=== PATIENT | female | born 1945 | race Caucasian/White ===

== ENCOUNTER → 2022-12-22 | Day surgery (SDC) | payer MEDICARE, OTHER ==
[~2022-12-22] MED LIST: ANASTROZOLE1 MG PO; Aspirin PO; FLUOXETINE HCL20 M1 PO; FLUOXETINE HCL20 MG PO; GLUCAGON FOR INJ 1 MG VIAL ONE; LACTATED RINGER'S 1,000 ML ONE; LEVOTHYROXINE50 MCG PO; LIDOCAINE HCL 2% LOCAL INJ 5 ML SDV VIAL INJ ONE; LISINOPRIL-HCT1 EACH PO; MELOXICAM7.5 MG PO; METFORMIN HCL500 MG PO; NEURONTIN300 MG PO; ONDANSETRON HCL INJ 2MG/ML 2ML 2 MG/ML VIAL ONE; POVIDONE IODINE 0.05% 0.05 % ML PO ONE; PROPOFOL IV EMULSION 10 MG/ML 20 ML VIAL ONE; PROTONIX20 MG PO; SUCRALFATE1 GM PO; VERAPAMIL ER240 M1; VERAPAMIL ER240 MG PO
[2022-12-22 13:14] VITALS: BP 178/80
== END | disposition home or self-care (01) ==
LOC: OR 06:52
PROVIDERS: ATTEND Internal Medicine Gastroenterology
DX: R63.4 Abnormal weight loss (principal); K29.50 Unspecified chronic gastritis without bleeding; K57.30 Diverticulosis of large intestine without perforation or abscess without bleeding; K63.89 Other specified diseases of intestine; K44.9 Diaphragmatic hernia without obstruction or gangrene; K64.8 Other hemorrhoids; E11.9 Type 2 diabetes mellitus without complications; R03.0 Elevated blood-pressure reading, without diagnosis of hypertension; Z79.84 Long term (current) use of oral hypoglycemic drugs; Z79.899 Other long term (current) drug therapy; Z68.33 Body mass index [BMI] 33.0-33.9, adult; Z85.3 Personal history of malignant neoplasm of breast
CPT/HCPCS: 36415; 43239; 45378; 74280; 82948; 88305; 88342; 93005; J1610; J2001; J2405; J2704; J7121; 88304; 88312